=== PATIENT | male | born 1980 | race Caucasian/White ===

== ENCOUNTER 2023-03-23 21:35 | Emergency (ER) | payer MEDICAID, SELFPAY ==
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
[2023-03-23 21:49] VITALS: BP 131/100; PULSE 99; RESP 22; O2SAT 98
[2023-03-23 22:05] LABS: Abs Immature Grans 0.02 10^3/uL (0.0-0.06); Absolute Basophil Count 0.05 10^3/uL (0.0-0.2); Absolute Lymphocyte Count 2.99 10^3/uL (1.2-3.4); Absolute Monocyte Count 0.74 10^3/uL (0.1-0.8); Absolute Neutrophil Count 4.23 10^3/uL (1.2-6.7); Basophils % 0.6; HCT 47.1 % (40.0-50.0); HGB 16.4 g/dL (13.5-17.5); Immature Grans % 0.2; Lymphocytes % 37.2; MCH 31.8 pg (27.0-33.0); MCHC 34.8 % (32.0-36.0); MCV 91 fL (80-95); MPV 10.8 fL (8.0-11.0); Monocytes % 9.2; Neutrophils % 52.8; Platelet Count 247 10^3/uL (130-400); RBC 5.16 10^6/uL (4.36-5.78); RDW 12.9 % (11.8-14.1); RDW-SD 43.5 fL; WBC 8.03 10^3/uL (4.4-10.8)
[2023-03-23 22:29] LABS: Salicylate 4.1 mg/dL (<2.8)
[2023-03-23 22:30] LABS: Acetaminophen < 2 ug/mL (10-30)
[2023-03-23 22:32] LABS: ALT 129 U/L (16-63); AST 70 U/L (15-37); Albumin 4.5 g/dL (3.4-5.0); Alkaline Phosphatase 69 U/L (46-116); Anion Gap 12.9 mmol/L (3-11); BUN 16 mg/dL (7-18); CO2 24.1 mmol/L (21.0-32.0); CREATININE 1.1 mg/dL (0.70-1.30); Calcium 9.4 mg/dL (8.5-10.1); Chloride 103 mmol/L (98-107); Estimated GFR 87.03 (mL/min/1.73m2); Glucose 112 mg/dL (74-106); Potassium 4.2 mmol/L (3.5-5.1); Sodium 140 mmol/L (136-145); TSH (W/Ref FT4) 2.56 uIU/mL (0.36-3.74); Total Protein 8.4 g/dL (6.4-8.2)
[2023-03-23 22:33] LABS: ETHANOL BLOOD < 3.0 mg/dL (<10)
[2023-03-24] MEDS: Nicotine 21 MG/24 HR PATCH (00:08)
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
--- NOTE | 2023-03-24 10:45 | DI.CT_ITS ---
Exam(s) CT HEAD WO EXAM: CT HEAD WO CLINICAL HISTORY: psych patient, remote head trauma. TECHNIQUE: Imaging Protocol: Axial computed tomography images with coronal and sagittal reformatted images were created and reviewed COMPARISON: No exams were available for comparison FINDINGS: Ventricles and Extra axial spaces: Normal in size and morphology for the patient's age. Hemorrhage: None. Cerebral parenchyma: Normal. Midline shift: None. Brainstem/Cerebellum: Normal. Calvarium: Normal. Visualized Paranasal sinuses/Mastoids: Clear. Soft Tissues: Unremarkable. IMPRESSION: 1. No acute intracranial process. 2. Findings were discussed with the emergency department at 11:17 a.m. on 03/24/2023. RADIATION DOSE DELIVERED: Total DLP DATA REPOSITORY: All CT scans at this facility are submitted to the National Radiology Data Registry (NRDR) Dose Index Registry (DIR) with the [employer] (ACR). RADIATION OPTIMIZATION: All CT scans at this facility use at least one of these dose optimization te chniques: automated exposure control; mA and/or kV adjustment per patient size (includes targeted exa ms where dose is matched to clinical indication); or iterative reconstruction.
--- NOTE | 2023-03-24 11:06 | NUR.NOTE ---
Nursing Note: This Rn took report at 10am. Pt in room and restless. Pt denies SI/HI. Pt remains in street clothing and refuses to provide urine sample. MD aware and further steps to be taken to obtain urine sample and clothing.
--- NOTE | 2023-03-24 12:35 | NUR.NOTE ---
Nursing Note: Pt encouraged to remain under the care of the ED care team. Pt chose to elope at 1220. Pt thoroughly denied SI/HI at time of elopement.
--- NOTE | 2023-03-24 13:01 | ED.PROG_ITS ---
Date of service: 03/24/23 Time of Service: 13:01 Medical Decision Making Patient was being evaluated by [facility] human services. Patient wishing to leave. Patient eloped. Sign Out Sign Out Data: Sign Out Comment: Paranoia, but no homicidal or suicidal ideations. Patient here voluntarily. Patient refusing any medications. Mental health is looking for placement. Recommend mental health reassessment this morning, and continued recommendation for potential Zyprexa use if needed. Patient is here voluntarily and is free to leave. Last updated by Juan Daniel Prince DO at 03/24/23 07:15 Discharge Plan Discharge Details Chief Complaint: PsychEval Clinical Impression: Acute paranoia Primary Care Provider: Cipriano Duke ED Provider: Chilango Lema
== END 2023-03-24 12:31 | disposition left against medical advice (07) ==
PROVIDERS: Student in an Organized Health Care Education/Training Program; Emergency Provider Emergency Medicine; PCP Family Medicine
DX: F22 Delusional disorders (principal); Z59.00 Homelessness unspecified; F32.A Depression, unspecified
CPT/HCPCS: 80053; 99284; 70450; 80320; 80329; 84443; 85025; 99283

== ENCOUNTER 2023-03-30 00:45 | Emergency (ER) | payer MEDICAID, SELFPAY ==
[2023-03-30 00:33] VITALS: BP 146/99; PULSE 120; RESP 17; TEMP 36.1; O2SAT 97
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
--- NOTE | 2023-03-30 01:37 | ED.GENADUL_ITS ---
Discharge Plan Disposition Patient Disposition: Home Condition: Good Discharge Details Chief Complaint: PsychEval Clinical Impression: Alcohol intoxication Primary Care Provider: Cipriano Duke ED Provider: Juan Daniel Prince Discharge Instructions Instructions: Alcohol Intoxication (ED) Additional Instructions: At this time you are clinically sober. Please continue to follow-up with your mental health advocates. If you notice any worsening of your symptoms, or any new symptoms such as vomiting, diarrhea, fever, chills, shortness of breath, chest pain, numbness, weakness, or fainting , please return immediately to the emergency department for reevaluation. Please follow up with your primary care provider as soon as possible for reassessment and reevaluation. As always, it was a pleasure participating in your medical care today. Referrals: Cipriano Duke [Primary Care Provider] - Medical Decision Making 42-year-old male who is a new patient here, with a reported past medical history of previous knee injuries, bulging disks in the lower lumbar and sacral spine, previous appendectomy, as well as developing paranoia, presents today for feeling unsafe at home. Patient was recently here in the past week or so, at which point he was diagnosed with paranoia. He eventually eloped on his own accord. [facility]. This evening he stated that someone at the desktop support technician told him that someone tried to get a room maravilla for his room, the patient then was very concerned that someone was potentially trying to get into his room where he was staying. The details are not overly clear, but over the next few hours he eventually had a few drinks of alcohol and smokes marijuana, and then called 911 because he was afraid and did not feel comfortable in my own living space. He denies any homicidal or suicidal ideations. No other complaints at this time. No other modifying factors. Exam demonstrates a mildly intoxicated male, somewhat fearful appearing. No homicidal or suicidal ideations. He is currently taking doxycycline for tick bite, as well as hydroxyzine for some itching. No other complaints. With the patient's mild current intoxication we will allow him to sleep and rest here in the ED and reassess when attained clinical sobriety. 6:53 AM On reassessment the patient feels much better. He no longer feels paranoid about his home situation. He denies any homicidal or suicidal ideations. Patient is notably clinically sober. The patient is able to speak clearly. There is no demonstration of any slurring of speech. There is evidence of clear decision making capacity. Patient is able to ambulate well without any difficulty. There are no signs of ataxia or stumbling motions. We will provide RCT ride for him to get home. Patient feels comfortable with going home now. I have extensively reviewed the treatment plan and discharge instructions with the patient. I have addressed all patient concerns at this time. The patient was made aware of what symptoms to monitor for that would warrant a return to the emergency department. Discussed the plan with the patient, they demonstrate verb al understanding and agreement with our assessment and plan at this time. The documentation in this chart was dictated using [employer] dictation software. Please excuse any dictation errors. HPI General Date/Time Provider Initiated Documentation: 03/30/23 00:55 . HPI Narrative: 42-year-old male who is a new patient here, with a reported past medical history of previous knee injuries, bulging disks in the lower lumbar and sacral spine, previous appendectomy, as well as developing paranoia, presents today for feeling unsafe at home. Patient was recently here in the past week or so, at which point he was diagnosed with paranoia. He eventually eloped on his own accord. He [facility]. This evening he stated that someone at the desktop support technician told him that someone tried to get a room maravilla for his room, the patient then was very concerned that someone was potentially trying to get into his room where he was staying. The details are not overly clear, but over the next few hours he eventually had a few drinks of alcohol and smokes marijuana, and then called 911 because he was afraid and did not feel comfortable in my own living space. He denies any homicidal or suicidal ideations. No other complaints at this time. No other modifying factors. General Stated Complaint: PsychEval TOD: 3 Review of Systems All systems reviewed & are unremarkable except as noted in HPI and below PFSH All Active Problems (Updated 03/30/23 @ 06:52 by Juan Daniel Prince DO) Acute paranoia (Acute) Alcohol intoxication (Acute) Social History (Reviewed 03/30/23 @ 01:39 by KOBE Maya Smoking/Tobacco Use Status: Never Smoking risk assessment performed?: Yes Alcohol Intake: current Alcohol Intake frequency: a few times a week Substance use type: marijuana Housing: other Do you feel safe at home: No Do you feel safe in your relationship?: Yes Exam Narrative Exam Narrative: 1.Const: Well-nourished, Well-developed, appearing stated age 2.Eyes: PERRL, no conjunctival injection, and symmetrical lids. 3.ENT: Atraumatic external nose and ears. Moist MM. Neck: Symmetric, trachea midline, No thyromegaly. 4.CVS: +S1/S2, No murmurs or gallops. Peripheral pulses 2+ and equal in all extremities. Brisk capillary refill in all extremities. 5.RESP: Unlabored respiratory effort. Clear to auscultation bilaterally. No wheezes rales or rhonchi 6.GI: Soft, Nontender/Nondistended, No hepatosplenomegaly. No guarding or rebound. 7.MSK: Normocephalic/Atraumatic, Extremities w/o deformity or ttp No cyanosis or clubbing, Normal movement of all extremities 8.Skin: Warm, Dry. No rashes or lesions. 9.Neuro: inside wireman II-XII grossly intact. Sensation grossly intact, no focal neurologic deficits. 10.Psych: (AAO) x3. Mildly intoxicated appearing, slightly tearful. Course Vital Signs Vital signs: Vital Signs Temperature 36.1 C L 03/30/23 00:33 Pulse 120 H 03/30/23 00:33 Respiratory Rate 17 03/30/23 00:33 Blood Pressure 146/99 H 03/30/23 00:33 Pulse Oximetry 97 03/30/23 00:33 Temperature 36.1 C L 03/30/23 00:33 Temperature Source Tympanic 03/30/23 00:33 Pulse 120 H 03/30/23 00:33 Respiratory Rate 17 03/30/23 00:33 Respiratory Effort Normal 03/30/23 00:41 Blood Pressure 146/99 H 03/30/23 00:33 Blood Pressure Position Sitting 03/30/23 00:33 Pulse Oximetry 97 03/30/23 00:33 Oxygen Delivery Method Room Air 03/30/23 00:33 Oxygen Flow Rate 0 03/30/23 00:33 PAWSS Have you Been Recently Intoxicated or Drunk Within the Last 30 days?: Yes Result: 1
== END 2023-03-30 06:53 | disposition home or self-care (01) ==
PROVIDERS: Emergency Provider Student in an Organized Health Care Education/Training Program; PCP Family Medicine
DX: F10.120 Alcohol abuse with intoxication, uncomplicated (principal); F22 Delusional disorders
CPT/HCPCS: 99283; 99282